=== PATIENT | female | born 1995 | race Two or more races ===

== ENCOUNTER 2017-04-23 22:34 | Emergency (ER) | payer OTHER ==
[~2017-04-23] VITALS: Ht 157.5 cm; Wt 53.1 kg
[2017-04-24 04:30] VITALS: BP 124/62
== END 2017-04-24 04:50 | disposition home or self-care (01) ==
LOC: ER 22:35
DX: L03.012 Cellulitis of left finger (principal)
CPT/HCPCS: 73140; 81025